=== PATIENT | male | born 1965 | race Hispanic/Latino ===

== ENCOUNTER 2018-09-12 07:23 | Day surgery (SDC) | payer OTHER ==
[~2018-09-12] VITALS: Ht 175.3 cm; Wt 96.2 kg
[~2018-09-12 07:23] MED LIST: INSU100I26 SQ; LACT10SO9 PO; PANT40TA25 PO; PROP20TA7 PO; RIFA550T PO; SODIUM CHLORIDE 0.9% 1000ML 1,000 ML IV ONE
[2018-09-12 08:39] VITALS: BP 130/73
[2018-09-12] MEDS ORDERED: PROPOFOL 10 MG/ML 20ML VIAL IV ONE ×2 (08:53)
[2018-09-12 09:20] VITALS: BP 83/45
[2018-09-12 09:25] VITALS: BP 81/45
[2018-09-12 09:30] VITALS: BP 86/47
[2018-09-12 09:35] VITALS: BP 93/47
[2018-09-12 09:45] VITALS: BP 110/67
--- NOTE | 2018-09-12 09:55 | NUR ---
PT TOLERATED PROCEDURE WELL, NO C/O OF ABDOMINAL PAIN, STATES ONLY BLOATING AND MILD DISCOMFORT, INSTRUCTED TO AMBULATE AT HOME TOLERATED TO HELP RELEASE AIR/ GAS IN THE ABDOMEN. POST CARE INSTRUCTIONS GIVEN TO PT AND HIS , BOTH VERBALIZED UNDERSTANDING. PT WHEELED OUT TO CAR, DROVE PT HOME.
== END 2018-09-12 09:55 | disposition home or self-care (01) ==
LOC: DAH 07:23 → ENDO 07:23
PROVIDERS: ATTEND Internal Medicine
DX: Z12.11 Encounter for screening for malignant neoplasm of colon (principal); I86.4 Gastric varices; K21.9 Gastro-esophageal reflux disease without esophagitis; B18.2 Chronic viral hepatitis C; K31.89 Other diseases of stomach and duodenum; K74.60 Unspecified cirrhosis of liver; I85.10 Secondary esophageal varices without bleeding; Z79.899 Other long term (current) drug therapy; Z79.84 Long term (current) use of oral hypoglycemic drugs; Z98.890 Other specified postprocedural states; Z79.01 Long term (current) use of anticoagulants
CPT/HCPCS: 43239; 45378; 82948 ×2; A4606; J2704 ×2; J7030